=== PATIENT | male | born 1970 | race Two or more races ===

== ENCOUNTER 2022-02-07 11:37 | Emergency (ER) | payer OTHER ==
[~2022-02-07] VITALS: Ht 190.5 cm; Wt 158.8 kg
[~2022-02-07 11:37] MED LIST: DIOVAN HCT 80-11 TAB; NADOLOL20 MG
== END 2022-02-07 13:20 | disposition home or self-care (01) ==
LOC: ER 11:37
DX: I10 Essential (primary) hypertension (principal); R51.9 Headache, unspecified